=== PATIENT | female | born 1950 | race Two or more races ===

== ENCOUNTER 2016-11-04 06:46 | Day surgery (SDC) | payer MEDICARE, MEDICAID ==
[2016-11-04] MEDS ORDERED: VANCOMYCIN FOR CATARACT SURGERY MC ONE ×2 (07:00)
[2016-11-04] MEDS ORDERED: BALANCED SALT IRRIG SOLN COMB1 500 ML, VANCOMYCIN FOR BSS PLUS 10 MG, GENTAMICIN SULFAT... IO ONE ×4 (07:00)
[2016-11-04] MEDS ORDERED: CIPROFLOXACIN 0.3% OPHT DROP 2.5 ML BOTTLE ONE (07:10)
[2016-11-04] MEDS ORDERED: CYCLOPENTOLATE 1% OPHT DROP 2 ML BOTTLE ONE (07:10)
[2016-11-04] MEDS ORDERED: FLURBIPROFEN 0.03% OPHT DROP 2.5 ML BOTTLE ONE (07:10)
[2016-11-04] MEDS ORDERED: TROPICAMIDE 1% OPHT DROP 3 ML BOTTLE ONE (07:11)
[2016-11-04] MEDS ORDERED: PHENYLEPHRINE 2.5% OPHT DROP 2 ML BOTTLE ONE (07:11)
[2016-11-04] MEDS ORDERED: LIDOCAINE-MPF 2% 5 ML VIAL ONE (07:31)
[2016-11-04] MEDS ORDERED: NEO/POLYMYX B/DEXAME OPHT OINT 3.5 GM TUBE ONE (07:31)
[2016-11-04] MEDS ORDERED: EPINEPHRINE 1 MG/1 ML AMP ONE (07:32)
[2016-11-04] MEDS ORDERED: TIMOLOL MALEATE 0.5% OPHT DROP 5 ML BOTTLE ONE (07:32)
[2016-11-04] MEDS ORDERED: ACETYLCHOLINE CHLORIDE 1% OPHT 1 EA KIT ONE (07:32)
[2016-11-04] MEDS ORDERED: LIDOCAINE HCL-MPF 1% 5 ML VIAL ONE (07:32)
[2016-11-04] MEDS ORDERED: BALANCED SALT IRRIG SOLN COMB2 15 ML IRRIG.SOLN ONE (07:32)
[2016-11-04] MEDS ORDERED: TETRACAINE HCL 0.5% OPHT DROP 2 ML BOTTLE ONE (07:32)
[2016-11-04] MEDS ORDERED: HYALURONATE SODIUM 8.5 MG/0.85 ML DISP.SYRIN ONE ×2 (07:33→07:45)
[2016-11-04] MEDS ORDERED: HYALURONIDASE,OVINE 200 UNITS/ML VIAL ONE (07:33)
[2016-11-04] MEDS ORDERED: BUPIVACAINE PF 0.5% 30 ML VIAL ONE (07:33)
[2016-11-04] MEDS ORDERED: HYALURONATE SODIUM 12.8 MG/0.8 ML DISP.SYRIN ONE (07:33)
[2016-11-04] MEDS ORDERED: FENTANYL CITRATE 100 MCG/2 ML AMPUL ONE (08:18)
[2016-11-04] MEDS ORDERED: BALANCED SALT IRRIG SOLN COMB1 0 ML ONE (08:58)
== END 2016-11-04 10:00 | disposition home or self-care (01) ==
LOC: DS 06:46
PROVIDERS: ATTEND Ophthalmology
DX: E11.36 Type 2 diabetes mellitus with diabetic cataract (principal); H26.9 Unspecified cataract; I10 Essential (primary) hypertension; E78.5 Hyperlipidemia, unspecified; M85.80 Other specified disorders of bone density and structure, unspecified site; Z90.710 Acquired absence of both cervix and uterus
CPT/HCPCS: 71010; A4663; J0171; J1580; J3010; J3370; J3471; J3490; J7030; J7321; V2632